=== PATIENT | male | born 1985 | race African-American/Black ===

== ENCOUNTER 2017-03-09 20:14 | Emergency (ER) | payer SELFPAY ==
[~2017-03-09] VITALS: Ht 188 cm; Wt 71.4 kg
[~2017-03-09 20:14] MED LIST: MOTRIN800 MG PO; NORCO 5/3251 TABLET PO; PEN-VEE K,VEET500 MG PO
[2017-03-09 20:28] VITALS: BP 118/75
[2017-03-09] MEDS ORDERED: NORCO 5/3251 TABLET PO (21:18)
[2017-03-09] MEDS ORDERED: CLEOCIN300 MG PO (21:18)
== END 2017-03-09 21:48 | disposition home or self-care (01) ==
LOC: EME 20:14
PROC: 0C96XZZ Drainage of Lower Gingiva, External Approach (ICD-10-PCS; principal; 2017-03-09)
DX: K04.7 Periapical abscess without sinus (principal); F17.200 Nicotine dependence, unspecified, uncomplicated
CPT/HCPCS: 99281; 99283